=== PATIENT | female | born 1955 | race African-American/Black ===

== ENCOUNTER → 2016-07-12 | Outpatient (CLI) | payer BC ==
[~2016-07-12] MED LIST: ASPI81TA28 PO
--- NOTE | 2016-07-12 17:14 | MAMMOGRAPHY REPORT ---
BILATERAL DIGITAL SCREENING MAMMOGRAM WITH CAD: 07/12/2016 CLINICAL HISTORY: Routine screening. Patient has no complaints. TECHNIQUE: Bilateral CC, MLO, repeat right MLO and left XCCL views were obtained. Current study was also evaluated with a Computer Aided Detection (CAD) system. COMPARISON: Comparison is made to exams dated: 07/07/2015 mammogram, 07/01/2014 mammogram, 06/26/2013 ma mmogram, 06/20/2012 mammogram, 06/13/2011 mammogram, and 06/08/2009 mammogram - [facility] er. BREAST COMPOSITION: There are scattered areas of fibroglandular density in both breasts. FINDINGS: There is a 9 mm focal asymmetry in the anterior subareolar right breast for which addition al spot compression tomosynthesis views and possibly ultrasound are recommended. No other suspicious mass, architectural distortion or cluster of microcalcifications is seen. IMPRESSION: ACR BI-RADS CATEGORY 0: INCOMPLETE EVALUATION: NEED ADDITIONAL IMAGING EVALUATION The 9 mm focal asymmetry in the right subareolar breast needs additional evaluation. The patient will be called to schedule an appointment. Approximately 10% of breast cancers are not detected with mammography. A negative mammographic report should not delay biopsy if a clinically suggestive mass is present. Yoana Bolivar M.D. ay/:07/12/2016 16:48:21 Geological E Logger: Madeline DELANEY(Soc[place])(M), [facility] letter sent: Addl Imaging 0 BI-RADS Code: ACR BI-RADS Category 0: Incomplete Evaluation: Need Additional Imaging Evaluation
== END | disposition home or self-care (01) ==
LOC: C.MAMM 16:25
PROVIDERS: ATTEND Family Medicine
DX: Z12.31 Encounter for screening mammogram for malignant neoplasm of breast (principal); N64.89 Other specified disorders of breast

== ENCOUNTER → 2016-11-01 | Outpatient (CLI) | payer BC ==
--- NOTE | 2016-11-01 15:30 | MAMMOGRAPHY REPORT ---
UNILATERAL RIGHT DIGITAL DIAGNOSTIC MAMMOGRAM TOMOSYNTHESIS AND TARGETED RIGHT ULTRASOUND: 11/01/2016 CLINICAL HISTORY: Callback from screening mammogram for right breast asymmetry. TECHNIQUE: Breast tomosynthesis in addition to standard 2D mammography was performed. Spot compress ion right CC and MLO 2-D and tomosynthesis images were obtained. COMPARISON: Comparison is made to exams dated: 07/12/2016 mammogram, 07/07/2015 mammogram, 07/01/2014 karen mogram, 06/26/2013 mammogram, 06/20/2012 mammogram, and 06/13/2011 mammogram - [facility]. BREAST COMPOSITION: There are scattered areas of fibroglandular density in the right breast. FINDINGS: Spot compression views demonstrate a mixed density focal asymmetry in the right lateral drew bareolar breast. Within the asymmetry is a round 4 mm mass with a surrounding rim of fat density, be st seen on the cc tomosynthesis images. The asymmetry appears stable compared to multiple prior exam s including the 2009 and 2008 exams on the cc view. Targeted ultrasound was performed of the right subareolar breast in the region of the mammographic as ymmetry. In the right subareolar breast, there is an oval hypoechoic circumscribed 9 x 6 x 7 mm mass . This corresponds with the mammographic asymmetry which has been stable dating back to at least the 2008 exam. Given the long-term mammographic stability, the mass is considered benign and may repres ent fat necrosis based on the mammographic appearance. The patient denies any nipple discharge, palp able lumps, or other complaints. IMPRESSION: ACR BI-RADS CATEGORY 2: BENIGN, TARGETED ULTRASOUND ACR BI-RADS CATEGORY 2: BENIGN Mixed density focal asymmetry in the right subareolar breast is stable mammographically dating back t o 2008, and is considered benign given long-term stability. There is no mammographic or targeted son ographic evidence of malignancy. Return to annual mammogram screening schedule is recommended, due Ju ne 2018. The patient has been verbally notified of the results. Approximately 10% of breast cancers are not detected with mammography. A negative mammographic report should not delay biopsy if a clinically suggestive mass is present. Valery Gallagher M.D. /:11/01/2016 10:51:43 [employer] Oil Driver: Heydi DELANEY([place])([place]), [facility] letter sent: Normal 02/06 BI-RADS Code: ACR BI-RADS Category 2: Benign Ultrasound BI-RADS: ACR BI-RADS Category 2: Benign
== END | disposition home or self-care (01) ==
LOC: C.MAMM 10:21
PROVIDERS: ATTEND Family Medicine
DX: N64.9 Disorder of breast, unspecified (principal)

== ENCOUNTER 2017-02-20 04:33 | Emergency (ER) | payer BC, OTHER ==
[~2017-02-20] VITALS: Ht 167.6 cm; Wt 110.7 kg
[2017-02-20 04:42] VITALS: TEMP 36.9; Ht 167.6 cm; Wt 110.7 kg
[2017-02-20] MEDS ORDERED: SODIUM CHLORIDE 0.9% 1000ML 1,000 ML IV ONE (05:00)
[2017-02-20 05:19] LABS: BASO % 0.7 %; BASO ABS # 0.06 K/uL (0-0.2); EOS % 5.3 %; EOS ABS # 0.49 K/uL (0-0.5); HEMATOCRIT 38.1 % (37-47); HEMOGLOBIN 12.7 g/dL (12.0-16.0); IG# 0.02 K/uL (0.00-0.02); LYMPH % 32.8 %; LYMPH ABS # 3.02 K/uL (1.2-3.4); MEAN CELL VOLUME 92.7 fL (80-100); MEAN CORPUSCULAR HEMOGLOBIN 30.9 pg (25-34); MEAN CORPUSCULAR HGB CONC 33.3 g/dl (32-36); MEAN PLATELET VOLUME 10.8 fL (7.4-10.4); MONO % 10.4 %; MONO ABS # 0.96 K/uL (0.11-0.59); NEUT % 50.6 %; NEUT ABS # 4.67 K/uL (1.4-6.5); PLATELET COUNT 289 K/uL (130-400); RED CELL DISTRIBUTION WIDTH CV 13.7 % (11.5-14.5); RED CELL DISTRIBUTION WIDTH SD 46.3 fL (36.4-46.3); WHITE BLOOD COUNT 9.22 K/uL (4.8-10.8)
[2017-02-20 05:29] LABS: ALBUMIN 3.3 gm/dl (3.4-5.0); CALCIUM 8.7 mg/dl (8.5-10.1); CREATININE 0.89 mg/dl (0.60-1.20); POTASSIUM 3.5 mmol/L (3.5-5.1)
[2017-02-20 05:40] LABS: CKMB 1.3 ng/ml (0.5-3.6); TOTAL PROTEIN 6.9 gm/dl (6.4-8.2)
[2017-02-20] MEDS ORDERED: OPTIRAY 320 IV PRN (05:45)
[2017-02-20] MEDS ORDERED: OLAN1TAB5 PO (06:14)
--- NOTE | 2017-02-20 06:55 | DIAGNOSTIC IMAGING REPORT ---
CHEST ONE VIEW PORTABLE HISTORY: 61 years-old Female Cough. Syncope. Acute cough and syncope COMPARISON: CTA of the chest 02/20/2017 TECHNIQUE: Portable AP view of the chest FINDINGS: Cardiac silhouette is moderately enlarged. Mild tortuosity of the thoracic aorta with mediastinal prominence. No pneumothorax or pleural effusion. Subtle subsegmental patchy bibasilar opacities are noted suggesting atelectasis. No overt pulmonary edema. Bones of the chest appear grossly intact. IMPRESSION: Cardiomegaly with minimal subsegmental bibasilar atelectasis. The above report was generated using voice recognition software. It may contain grammatical, syntax or spelling errors. Electronically signed by: Camden Edward M.D. 02/20/2017 6:54 AM Dictated Date/Time: 02/20/2017 6:52 AM
--- NOTE | 2017-02-20 07:02 | DIAGNOSTIC IMAGING REPORT ---
CT OF THE HEAD WITHOUT CONTRAST CLINICAL HISTORY: Syncope. Fall . COMPARISON STUDY: Head CT and MRI of the brain June 04, 2013. CT DOSE: 537.48 mGy.cm TECHNIQUE: Helical axial images of the head were obtained without IV contrast. Automated exposure control was utilized for the study. A dose lowering technique was utilized adhering to the principles of ALARA. FINDINGS: No acute intracranial hemorrhage, midline shift or mass effect is present. Ventricular system is stable. Incidental note is made of a cavum septum pellucidum. Basilar cisterns are patent. There are no extra-axial collections. Davalos-white differentiation is maintained. Locules of gas within the right infratemporal fossa and cavernous sinus are likely due to IV. There is no calvarial fracture. Visualized portions of the sinuses and the mastoid air cells are clear. IMPRESSION: 1. No acute intracranial findings. 2. No calvarial fracture. Electronically signed by: Shay Pendleton M.D. 02/20/2017 7:01 AM Dictated Date/Time: 02/20/2017 6:57 AM
--- NOTE | 2017-02-20 07:12 | DIAGNOSTIC IMAGING REPORT ---
(CHEST FOR PE) ANGIO WITH CT DOSE: 669.90 mGy.cm HISTORY: 61 years-old Female presents with cough and syncope. TECHNIQUE: Multiple CTA images of the chest were obtained after the intravenous administration of 92 ml Optiray 320. Coronal and sagittal MIPS were obtained from the axial data set and were submitted for review. A dose lowering technique was utilized adhering to the principles of ALARA. COMPARISON: Chest radiograph of same day, CTA of the chest 06/21/2011. FINDINGS: CTA: Heart is mildly enlarged without pericardial effusion. No aortic aneurysm or dissection. Thoracic aorta is mildly tortuous. The imaged great vessels appear to be patent. Bovine aortic arch is noted. The pulmonary arterial tree is opacified to level of the subsegmental branches and demonstrates no focal filling defects to suggest pulmonary thromboembolic disease. CT CHEST: No thyroid nodule identified. There are a few scattered mildly prominent right hilar, right paratracheal and AP window lymph nodes without pathologically enlarged lymph nodes seen by CT size criteria. There is no pneumothorax, pleural effusion, focal airspace consolidation or overt pulmonary edema. Minimal subsegmental bibasilar atelectasis. Mild bilateral bronchial wall thickening, notably within the lung bases. 4 mm perifissural lymph node abuts the minor fissure adjacent to the right middle lobe. Central airways are patent. There is of low-attenuation are seen to the liver suggesting hepatic cysts, largest which measures up to 1.3 cm the hepatic dome. No acute abnormality of the imaged upper abdomen. Soft tissues are unremarkable. The bones appear intact. Endplate degenerative changes noted throughout the spine. IMPRESSION: 1. No acute aortic pathology or evidence of pulmonary thromboembolic disease. 2. Mild bilateral bronchial wall thickening, greatest at the level of the lung bases suggest bronchitis. No focal airspace consolidation to suggest pneumonia. 3. Mild cardiomegaly. The above report was generated using voice recognition software. It may contain grammatical, syntax or spelling errors. Electronically signed by: Camden Edward M.D. 02/20/2017 7:10 AM Dictated Date/Time: 02/20/2017 7:03 AM
[2017-02-20] MEDS ORDERED: AZIT250T PO (07:26)
[2017-02-20] MEDS ORDERED: AZITHROMYCIN 250 MG TAB PO ONE (07:30)
[2017-02-20] MEDS ORDERED: ALBUTEROL HFA 8 GM INHALER INH ONE (07:30)
[2017-02-20 07:50] VITALS: BP 148/99; PULSE 60; O2SAT 96
--- NOTE | 2017-02-20 22:20 | EMERGENCY ROOM VISIT NOTE ---
History First contact with patient: 04:36 Chief Complaint: SYNCOPE Stated Complaint: SYNCOPE Nursing Triage Summary: pt did not go to work yesterday b/c she had a cough and didn't feel well,hasn't felt well all day,woke up around 1am to take some robitussin,pt got up again around 4am and son heard her fall in the kitchen,son was able to get her to a chair where she had a near syncopal episode per ems when they got there pt was slurring her words,has since resolved History of Present Illness The patient is a 61 year old female who presents to the Emergency Room with complaints of syncopal episode that occurred about 30 minutes ago. The patient states that she has been mildly ill the past 4 or 5 days. She has had a persistent dry cough and has been taking [id number] cough and cold medication for the symptoms. The patient evidently sleeping tonight, got up, and went into her kitchen, and had a syncopal episode. The patient remembers her son helping her off the ground. The patient event itself was not witnessed , however the son heard her fall, and was able to immediately attended to her after the episode. There was no seizure-like activity, she was not postictal. She was only on the ground for several seconds before awakening and standing. The patient does not have pain anywhere. She does not believe that she struck her head. She is without extremity injury, laceration, abrasion, numbness, or paresthesias. No chest pain or shortness of breath. The patient does not have history of cardiac disease. She rates her overall discomfort a 0/10, and is without other complaints. Review of Systems More than 10 systems were reviewed and otherwise negative with the exception of history of present illness. Past Medical/Surgical History Medical Problems: (1) Allergic rhinitis (2) Schizophrenia Surgical Problems: (1) Previous section Family History No pertinent family history Social History Smoking Status: Never Smoker Alcohol Use: none Drug Use: none Marital Status: Housing Status: lives with significant other Occupation Status: employed Current/Historical Medications Scheduled Azithromycin (Zithromax), 250 MG PO DAILY Olanzapine (Zyprexa), 20 MG PO HS Physical Exam Vital Signs Date Time Temp Pulse Resp B/P (MAP) Pulse Ox O2 Delivery O2 Flow Rate FiO2 02/20/17 07:50 60 16 148/99 96 02/20/17 06:31 59 22 166/86 95 Room Air 02/20/17 05:57 62 18 157/78 96 Room Air 02/20/17 04:42 54 02/20/17 04:42 36.9 55 16 158/79 95 Room Air Physical Exam VITALS: Vitals are noted on the nurse's note and reviewed by myself. Vital signs stable. GENERAL: Well-developed, well-nourished, black female, who is in no acute distress and resting comfortably. Patient is cooperative with the examination. HEAD: Normocephalic atraumatic. EARS: External ear normal. External auditory canals clear, tympanic membranes pearly davalos without erythema or effusion bilaterally. EYES: Pupils equal round and reactive to light and accommodation. Conjunctivae without injection, sclerae without icterus. Extraocular movements intact. NOSE: Patent, turbinates without inflammation or discharge. MOUTH: Mucous membranes moist. Tonsils are not enlarged. Pharynx without erythema, blood, or exudate. Uvula midline. Airway patent. NECK: Supple without nuchal rigidity. No lymphadenopathy. No thyromegaly. Cervical spine is nontender. HEART: Regular rate and rhythm without murmurs gallops or rubs. LUNGS: Clear to auscultation bilaterally without wheezes, rales or rhonchi. No retractions or accessory muscle use. ABDOMEN: Positive normal bowel sounds x 4. Soft, nontender, without masses or organomegaly. No guarding or rebound tenderness. MUSCULOSKELETAL: No muscle atrophy, erythema, or edema noted. Full range of motion without joint tenderness in all extremities. No tenderness to palpation. Normal gait. Strength 5/5 throughout. NEURO: Patient was alert and oriented to person place and time. CN II through XII grossly intact. Deep tendon reflexes 2+ throughout. No focal neurological deficits SKIN: The skin was without rashes, erythema, edema, or bruising. Capillary reflex less than 2 seconds. Medical Decision & Procedures ER Provider Diagnostic Interpretation: CT OF THE HEAD WITHOUT CONTRAST CLINICAL HISTORY: Syncope. Fall . COMPARISON STUDY: Head CT and MRI of the brain June 04, 2013. CT DOSE: 537.48 mGy.cm TECHNIQUE: Helical axial images of the head were obtained without IV contrast. Automated exposure control was utilized for the study. A dose lowering technique was utilized adhering to the principles of ALARA. FINDINGS: No acute intracranial hemorrhage, midline shift or mass effect is present. Ventricular system is stable. Incidental note is made of a cavum septum pellucidum. Basilar cisterns are patent. There are no extra-axial collections. Davalos-white differentiation is maintained. Locules of gas within the right infratemporal fossa and cavernous sinus are likely due to IV. There is no calvarial fracture. Visualized portions of the sinuses and the mastoid air cells are clear. IMPRESSION: 1. No acute intracranial findings. 2. No calvarial fracture. (CHEST FOR PE) ANGIO WITH CT DOSE: 669.90 mGy.cm HISTORY: 61 years-old Female presents with cough and syncope. TECHNIQUE: Multiple CTA images of the chest were obtained after the intravenous administration of 92 ml Optiray 320. Coronal and sagittal MIPS were obtained from the axial data set and were submitted for review. A dose lowering technique was utilized adhering to the principles of ALARA. COMPARISON: Chest radiograph of same day, CTA of the chest 06/21/2011. FINDINGS: CTA: Heart is mildly enlarged without pericardial effusion. No aortic aneurysm or dissection. Thoracic aorta is mildly tortuous. The imaged great vessels appear to be patent. Bovine aortic arch is noted. The pulmonary arterial tree is opacified to level of the subsegmental branches and demonstrates no focal filling defects to suggest pulmonary thromboembolic disease. CT CHEST: No thyroid nodule identified. There are a few scattered mildly prominent right hilar, right paratracheal and AP window lymph nodes without pathologically enlarged lymph nodes seen by CT size criteria. There is no pneumothorax, pleural effusion, focal airspace consolidation or overt pulmonary edema. Minimal subsegmental bibasilar atelectasis. Mild bilateral bronchial wall thickening, notably within the lung bases. 4 mm perifissural lymph node abuts the minor fissure adjacent to the right middle lobe. Central airways are patent. There is of low-attenuation are seen to the liver suggesting hepatic cysts, largest which measures up to 1.3 cm the hepatic dome. No acute abnormality of the imaged upper abdomen. Soft tissues are unremarkable. The bones appear intact. Endplate degenerative changes noted throughout the spine. IMPRESSION: 1. No acute aortic pathology or evidence of pulmonary thromboembolic disease. 2. Mild bilateral bronchial wall thickening, greatest at the level of the lung bases suggest bronchitis. No focal airspace consolidation to suggest pneumonia. 3. Mild cardiomegaly. CHEST ONE VIEW PORTABLE HISTORY: 61 years-old Female Cough. Syncope. Acute cough and syncope COMPARISON: CTA of the chest 02/20/2017 TECHNIQUE: Portable AP view of the chest FINDINGS: Cardiac silhouette is moderately enlarged. Mild tortuosity of the thoracic aorta with mediastinal prominence. No pneumothorax or pleural effusion. Subtle subsegmental patchy bibasilar opacities are noted suggesting atelectasis. No overt pulmonary edema. Bones of the chest appear grossly intact. IMPRESSION: Cardiomegaly with minimal subsegmental bibasilar atelectasis Laboratory Results 02/20/17 04:30 Red Blood Count 4.11, Mean Corpuscular Volume 92.7, Mean Corpuscular Hemoglobin 30.9, Mean Corpuscular Hemoglobin Concent 33.3, Mean Platelet Volume 10.8, Neutrophils (%) (Auto) 50.6, Lymphocytes (%) (Auto) 32.8, Monocytes (%) (Auto) 10.4, Eosinophils (%) (Auto) 5.3, Basophils (%) (Auto) 0.7, Neutrophils # (Auto ) 4.67, Lymphocytes # (Auto) 3.02, Monocytes # (Auto) 0.96, Eosinophils # (Auto ) 0.49, Basophils # (Auto) 0.06 02/20/17 04:30 Test 02/20/17 04:30 02/20/17 04:58 02/20/17 05:20 02/20/17 05:31 White Blood Count 9.22 K/uL (4.8-10.8) Red Blood Count 4.11 M/uL (4.2-5.4) Hemoglobin 12.7 g/dL (12.0-16.0) Hematocrit 38.1 % (37-47) Mean Corpuscular Volume 92.7 fL (80-100) Mean Corpuscular Hemoglobin 30.9 pg (25-34) Mean Corpuscular Hemoglobin Concent 33.3 g/dl (32-36) Platelet Count 289 K/uL (130-400) Mean Platelet Volume 10.8 fL (7.4-10.4) Neutrophils (%) (Auto) 50.6 % Lymphocytes (%) (Auto) 32.8 % Monocytes (%) (Auto) 10.4 % Eosinophils (%) (Auto) 5.3 % Basophils (%) (Auto) 0.7 % Neutrophils # (Auto) 4.67 K/uL (1.4-6.5) Lymphocytes # (Auto) 3.02 K/uL (1.2-3.4) Monocytes # (Auto) 0.96 K/uL (0.11-0.59) Eosinophils # (Auto) 0.49 K/uL (0-0.5) Basophils # (Auto) 0.06 K/uL (0-0.2) RDW Standard Deviation 46.3 fL (36.4-46.3) RDW Coefficient of Variation 13.7 % (11.5-14.5) Immature Granulocyte % (Auto) 0.2 % Immature Granulocyte # (Auto) 0.02 K/uL (0.00-0.02) Anion Gap 6.0 mmol/L (3-11) Est Creatinine Clear Calc Drug Dose 81.5 ml/min Estimated GFR () 79.9 Estimated GFR (Non- 69.0 BUN/Creatinine Ratio 9.5 (10-20) Calcium Level 8.7 mg/dl (8.5-10.1) Total Bilirubin 0.6 mg/dl (0.2-1) Aspartate Amino Transf (AST/SGOT) 9 U/L (15-37) Alanine Aminotransferase (ALT/SGPT) 14 U/L (12-78) Alkaline Phosphatase 93 U/L (45-117) Total Creatine Kinase 153 U/L (26-192) Creatine Kinase MB 1.3 ng/ml (0.5-3.6) Creatine Kinase MB Ratio 0.8 (0-3.0) Total Protein 6.9 gm/dl (6.4-8.2) Albumin 3.3 gm/dl (3.4-5.0) Globulin 3.6 gm/dl (2.5-4.0) Albumin/Globulin Ratio 0.9 (0.9-2) Thyroid Stimulating Hormone (TSH) 4.030 uIu/ml (0.300-4.500) Bedside Troponin I < 0.030 ng/ml (0-0.045) Ethyl Alcohol mg/dL < 3.0 mg/dl (0-3) Urine Color YELLOW Urine Appearance CLEAR (CLEAR) Urine pH 7.0 (4.5-7.5) Urine Specific [place] 1.014 (1.000-1.030) Urine Protein NEG (NEG) Urine Glucose (UA) NEG (NEG) Urine Ketones NEG (NEG) Urine Occult Blood NEG (NEG) Urine Nitrite NEG (NEG) Urine Bilirubin NEG (NEG) Urine Urobilinogen NEG (NEG) Urine Leukocyte Esterase NEG (NEG) Medications Administered Medications (Trade) Dose Ordered Sig/Michelle Route Start Time Stop Time Status Last Admin Dose Admin Sodium Chloride 1,000 ml @ 999 mls/hr Q1H1M ONCE IV 02/20/17 05:00 02/20/17 06:00 DC 02/20/17 05:19 999 MLS/HR Azithromycin (Zithromax Tab) 500 mg NOW ONCE PO 02/20/17 07:30 02/20/17 07:31 DC 02/20/17 07:43 500 MG Albuterol (Ventolin Hfa Inhaler) 2 puffs NOW ONCE INH 02/20/17 07:30 02/20/17 07:31 DC 02/20/17 07:43 2 PUFFS ECG Change: Sinus bradycardia @52 bpm Nonspecific T wave abnormality Poor R wave progression, consider anterior VA vs. lead placement vs. LVH Abnormal ECG When compared with ECG of 04-JUN-2013 10:00, No significant change was found Confirmed by Sigifredo Shi ([id number]) on 02/20/2017 12:52:19 PM ED Course Physical exam and history were performed. Nursing notes, EMR, and Medication List were personally reviewed. Patient appears to have had a syncopal episode at home about 30 minutes ago. She does arrive via ambulance. On evaluation the patient appears very comfortable and nontoxic. She does not have outward signs of trauma. EKG was performed and was sinus. Cardiovascular 52 beats per minute per my interpretation. There was no obvious ST elevation suggesting ischemic episode. IV access was established and labs were obtained. The patient was hydrated with normal saline. Chest x-ray was performed and reviewed by myself and my attending, and was concerning for possible mediastinal enlargement versus vascular tortuosity. Because of her symptoms I did elect to perform a CT scan of the head and chest. She was placed in a pvc monitor. The patient's blood work is as above and was reviewed. She does not have a significantly elevated white blood cell count, gross anemia, bandemia, or significant electrolyte imbalance. Transaminases are nondiagnostic. Troponin is negative. CT scan of the head does not show acute fracture or bleed. Chest CT is also without signs of aneurysm, dissection, pneumonia, or clot. CT scan does suggest a bronchitis, which would correlate with her recent cough symptoms. The patient was monitored for several hours here in the emergency department without any worsening of her condition. Repeat examination shows that she remained very comfortable and pleasant. I discussed options of care with the patient and she does have a preference for going home. This appears reasonable based on her findings today, and I suspect that much of her symptoms are related to the cough and vasovagal episode. I had a lengthy discussion with her regarding her findings, and explained that she will need to follow with her primary care physician for further management. I will give her a course of Zithromax and an inhaler for her likely bronchitis. She was otherwise invited back to the ER with any new, worsening, or concerning symptoms. The chart was completed utilizing [employer] Speech Voice Recognition Software. Grammatical errors, random word insertions, pronoun errors, and incomplete sentences are an occasional consequence of this system due to software limitations, ambient noise, and hardware issues. Any formal questions or concerns about the content, text, or information contained within the body of this dictation should be directly addressed to the provider for clarification. . Medical Decision Differential diagnosis: Etiologies such as vasovagal event, infection, hypoglycemia, electrolyte abnormalities, cardiac sources, intracerebral event, toxicologic, neurologic, as well as others were entertained. Blood Pressure Screening Blood pressure disposition: Elevated BP felt to be situational Impression Primary Impression: Syncope Additional Impression: Acute bronchitis Departure Information Dispostion Home / Self-Care Condition GOOD Prescriptions Azithromycin (Zithromax) 250 Mg Tab 250 MG PO DAILY for 4 Days, #4 TAB Prov: Shree Reid PA-C 02/20/17 Forms HOME CARE DOCUMENTATION FORM, Work Instructions, Additional Instructions: Patient was seen and evaluated today in the emergency department fo medical care. Return to work on 02/23/2017. Please excuse. IMPORTANT VISIT INFORMATION Patient Instructions My [facility] Additional Instructions You were seen and evaluated today on an emergency basis only. This is not a substitute for, or an effort to provide, complete comprehensive medical care. It is not possible to recognize and treat all injuries or illnesses in a single emergency department visit. For this reason it is recommended that you followup with your primary care physician in the next 2-3 days for recheck. Call today to make the appointment. Take Zithromax 250 mg daily for the next 4 days. Use your albuterol inhaler 2 puffs every 4-6 hours as needed. Drink plenty of fluids and remain well hydrated. You are welcome to return to the emergency department anytime with new, worsening, or concerning symptoms. Work Instructions Additional Work Instructions: Patient was seen and evaluated today in the emergency department for medical care. Return to work on 02/23/2017. Please excuse. Problem Qualifiers
== END 2017-02-20 07:51 | disposition home or self-care (01) ==
LOC: EDBD 04:33 → C.EDA 04:34
DX: J20.9 Acute bronchitis, unspecified (principal); R55 Syncope and collapse; F20.9 Schizophrenia, unspecified